=== PATIENT | male | born 1990 | race Caucasian/White ===

== ENCOUNTER 2016-11-03 17:59 | Emergency (ER) | payer OTHER ==
[2016-11-03 18:11] VITALS: BP 115/85; PULSE 94; RESP 18; TEMP 98.2; O2SAT 100
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
== END 2016-11-03 18:54 | disposition home or self-care (01) ==
DX: S61.411A Laceration without foreign body of right hand, initial encounter (principal); W22.8XXA Striking against or struck by other objects, initial encounter; Y99.8 Other external cause status; Y93.89 Activity, other specified

== ENCOUNTER → 2018-07-29 | Outpatient (CLI) | payer MEDICAID | LOC: BMCIMAGING 08:57 | PROVIDERS: ATTEND Family Medicine | DX: R74.0 Nonspecific elevation of levels of transaminase and lactic acid dehydrogenase [LDH] (principal); K76.0 Fatty (change of) liver, not elsewhere classified; R16.2 Hepatomegaly with splenomegaly, not elsewhere classified ==

== ENCOUNTER → 2018-09-09 | Outpatient (CLI) | payer MEDICAID | LOC: FIMAGING 12:52 ==